=== PATIENT | female | born 1980 | race Caucasian/White ===

== ENCOUNTER 2019-10-24 09:50 | Outpatient (CLI) | payer OTHER, SELFPAY ==
--- NOTE | ~2019-10-24 | XR_ITS ---
EXAMINATION: XR knee LT min 4V DATE: 10/24/2019 10:15 INDICATION: Lateral left knee pain. TECHNIQUE: 4 views of left knee were obtained. COMPARISON: Left knee radiographs 05/05/2014 FINDINGS: Bone alignment is normal. No fracture. There is mild tricompartmental osteoarthritis. There is a moderate-sized knee joint effusion. IMPRESSION: 1. Mild left knee osteoarthritis. 2. Moderate-sized left knee joint effusion. Reviewed, dictated and finalized at location A. [employer]
== END 2019-10-24 09:51 | disposition home or self-care (01) ==
DX: M17.12 Unilateral primary osteoarthritis, left knee (principal); M25.462 Effusion, left knee
CPT/HCPCS: 73564

== ENCOUNTER 2019-10-25 15:33 | Emergency (ER) | payer OTHER, SELFPAY ==
[2019-10-25 15:39] VITALS: BP 102/70; PULSE 87; RESP 18; TEMP 36.6; O2SAT 97
--- NOTE | 2019-10-25 16:01 | ED.LOWEXIN ---
HPI - Extremity Injury (Lower) General Chief Complaint: Extremity Injury, Lower Stated Complaint: left knee pain Time Seen by Provider: 10/25/19 16:03 Source: patient History of Present Illness HPI Narrative: Patient presents with left knee pain. Patient states she had a left knee x-ray done at [facility] yesterday but is unable to contact her primary care provider to get results of x-ray. Patient is here requesting x-ray results and something for pain and a work note. Patient denies any injury to her knee but states she does stand on her feet at work. complaint: hip injury Injury: Left: knee Related Data Home Medications Medication Instructions Recorded Confirmed albuterol sulfate 2 puff INHALATION QID PRN 10/25/19 10/25/19 buprenorphine-naloxone 1 film SUBLINGUAL BID 10/25/19 10/25/19 bupropion HCl [Wellbutrin XL] 300 mg PO QAM 10/25/19 10/25/19 trazodone 100 mg PO HS 10/25/19 10/25/19 Allergies Allergy/AdvReac Type Severity Reaction Status Date / Time No Known Allergies Allergy Verified 10/25/19 16:01 Review of Systems Review of Systems: Narrative: CONSTITUTIONAL: Denies fever, chills, or sweats. EYES: Denies visual changes, redness, or discharge. ENT: Denies rhinorrhea, congestion, sore throat, or otalgia. CARDIOVASCULAR: Denies chest pain, palpitations, or edema. RESPIRATORY: Denies cough or dyspnea. GASTROINTESTINAL: Denies abdominal pain, nausea, vomiting, or diarrhea. GENITOURINARY: Denies dysuria or hematuria. SKIN: Denies rash or itching. MUSCULOSKELETAL: Denies back pain, joint pain, or myalgia. Left knee pain NEUROLOGIC: Denies headache, numbness, or weakness. PSYCHIATRIC: Denies anxiety or depression. All systems reviewed & are unremarkable except as noted in HPI and below PMFSH Comments At time of signature, agree with nursing past medical, surgical, social and family history. There is no relevant family history pertinent to the presenting complaint Exam Narrative: Exam Narrative: GENERAL: Well-appearing, well-nourished, and in no acute distress. HEAD: Normocephalic, atraumatic. EYES: PERRLA and EOMI. ENT: Nares clear, no rhinorrhea or epistaxis. Mucous membranes moist. NECK: Supple. CHEST: Clear to auscultation. No respiratory distress. HEART: Regular rate and rhythm. No murmur heard. Normal peripheral pulses. ABDOMEN: Soft, nontender, nondistended, normal active bowel sounds. EXTREMITIES: Normal range of motion. No edema. SKIN INTACT. NO DEFORMITY. NORMAL ROM, HAS FULL EXTENSION AND FLEXION. COMPARTMENTS SOFT. NEGATIVE ANTERIOR, POSTERIOR DRAWER SIGNS ON TEST. NO CREPITUS. DP PULSE, NORMAL CAPILLARY REFILL. RIGHT CALF MEASURES 48.5CM; LEFT CALF MEASURES 47.5CM. -MCMURRAYS, PAIN TO RIGHT MEDIAL AND DISTAL KNEE WITH KNEE FLEXION, INTERNAL AND EXTERNAL FOOT ROTATION. RIGHT CALF IS FIRM WITH PALAPTION. FOOT FLEXION CAUSES PAIN TO RIGHT CALF. TENDERNESS WITH PALPATION TO RIGHT ACHILLES TENDON. NO ERYTHEMA OR INCREASED WARMTH TO CALF. . SKIN: Warm, dry, no rash. NEURO: No focal deficits. Alert and oriented x3. [place] Coma Scale Eye Opening: Spontaneous 4 [place] Coma Scale Motor: Obeys Commands 6 [place] Coma Scale Verbal: Oriented 5 [place] Coma Scale Total 15 Course Vital Signs Vital signs: Vital Signs Temperature 36.6 C 10/25/19 15:39 Pulse Rate 87 10/25/19 15:39 Respiratory Rate 18 10/25/19 15:39 Blood Pressure 102/70 10/25/19 15:39 Pulse Oximetry 97 10/25/19 15:39 Temperature 36.6 C 10/25/19 15:39 Pulse Rate 87 10/25/19 15:39 Respiratory Rate 18 10/25/19 15:39 Blood Pressure 102/70 10/25/19 15:39 Pulse Oximetry 97 10/25/19 15:39 DISCUSSED WITH PATIENT, X-RAY FINDINGS AND THAT X-RAYS WERE NEGATIVE FOR FRACTURE OR DISLOCATIONS. X-RAYS CANNOT RULE OUT TENDON, LIGAMENT, OR SOFT TISSUE STRUCTURE INJURIES AND IF SYMPTOMS PERSIST OR WORSEN, FURTHER EVALUATION MAY BE WARRANTED FOR POTENTIAL IMAGING. ADVISED REST, ICE, COMPRESSION, AND ELEVATION. IF MA
== END 2019-10-25 16:05 | disposition home or self-care (01) ==
PROVIDERS: Emergency Provider Nurse Practitioner Family
DX: M17.12 Unilateral primary osteoarthritis, left knee (principal); J45.909 Unspecified asthma, uncomplicated; F41.9 Anxiety disorder, unspecified; F32.9 Major depressive disorder, single episode, unspecified
CPT/HCPCS: 99213; G0463

== ENCOUNTER → 2019-11-18 08:46 | Outpatient (CLI) | payer OTHER, SELFPAY ==
--- NOTE | ~2019-11-18 | US_ITS ---
EXAMINATION: US transvaginal DATE: 11/18/2019 09:12 INDICATION: Follow-up ovarian cysts Comparison:Ultrasound dated 09/28/2019 TECHNIQUE: Multiple transabdominal and endovaginal sonographic images of the pelvis performed. FINDINGS: The uterus measures 7.4 x 3.3 x 4.2 cm. The endometrial complex measures 3 mm. The right ovary measures 1.9 x 1.3 x 1.6 cm and the left ovary measures 2.1 x 1.3 x 1.9 cm. There ar e small follicles in each ovary. There is no free fluid in the pelvis. There are no abnormal masses seen on either side. IMPRESSION: 1. Normal pelvic ultrasound. Reviewed, dictated and finalized at location B. [employer]
== END ==
PROVIDERS: Visit Provider Obstetrics & Gynecology
DX: N83.201 Unspecified ovarian cyst, right side (principal)
CPT/HCPCS: 76830

== ENCOUNTER 2020-08-18 08:53 | Emergency (ER) | payer OTHER, SELFPAY ==
[2020-08-18 09:00] VITALS: BP 119/85; PULSE 89; RESP 14; TEMP 36.6; O2SAT 100
--- NOTE | 2020-08-18 09:20 | ED.NAVMDI ---
HPI - Nausea/Vomiting/Diarrhea General Chief complaint: Nausea/Vomiting/Diarrhea Stated complaint: nausea x 2 days Time Seen by Provider: 08/18/20 09:20 Source: patient History of Present Illness HPI Narrative: PATIENT PRESENTS WITH NAUSEA NO ABDOMINAL PAIN NO FEVER NO DIARRHEA NO CONSTIPATION. PATIENT STATES SHE HAS A HISTORY OF PANCREATITIS BUT DOES NOT FEEL IF THIS IS A FLAIR. PATIENT STATES HER DAUGHTER IS POSITIVE FOR COVID 19. Related Data Home Medications Medication Instructions Recorded Confirmed albuterol sulfate 2 puff INHALATION QID PRN 10/25/19 08/18/20 levonorgestrel [Mirena] 1 device INTRAUTERINE ONCE 10/25/19 08/18/20 Allergies Allergy/AdvReac Type Severity Reaction Status Date / Time No Known Allergies Allergy Verified 08/18/20 09:07 Review of Systems Review of Systems: Narrative: CONSTITUTIONAL: Denies chills, or sweats. Reports fever and generalized body aches EYES: Denies visual changes, redness, or discharge. ENT: Denies otalgia. Reports nasal congestion runny nose and sore throat CARDIOVASCULAR: Denies chest pain, palpitations, or edema. RESPIRATORY: Denies dyspnea. Reports occasional cough GASTROINTESTINAL: Denies abdominal pain, nausea, vomiting, or diarrhea. GENITOURINARY: Denies dysuria or hematuria. SKIN: Denies rash or itching. MUSCULOSKELETAL: Denies back pain, joint pain, or myalgia. Reports generalized body aches NEUROLOGIC: Denies headache, numbness, or weakness. PSYCHIATRIC: Denies anxiety or depression. PMFSH Comments At time of signature, agree with nursing past medical, surgical, social and family history. There is no relevant family history pertinent to the presenting complaint Exam Narrative: Exam Narrative: The patient is a well-developed, well-nourished in no acute distress. SKIN: Skin is warm and dry without erythema, swelling or exudate. There is good turgor. No tenting. HEAD: Atraumatic. Normocephalic. No temporal or scalp tenderness. EYES: Moist and bright. Sclera and conjunctivae normal. No discharge. PERRLA. Extraocular motions intact. Gross visual acuity intact. EARS: Pinna is normal shape and contour. Clear external auditory canals. TM pearly dickey with good cone of light, no erythema or suppuration. Bilateral cerumen noted no gross hearing deficit. NOSE: pink, moist mucosa with good air movement. Clear rhinorrhea without nasal flaring. Septum midline. Mouth: moist mucous membranes. THROAT; mild erythema noted to posterior oropharynx with moderate postnasal drainage. Without exudate or ulceration.. Uvula midline. Normal movement of soft palate. NECK: Supple and nontender with full range of motion without discomfort. No meningeal signs. LUNGS: Equal and bilateral breath sounds without wheezes, rales or rhonchi. CHEST: The chest wall is without retractions or use of accessory muscles. HEART: Has a regular rate and rhythm without murmur, gallops, click or rub. ABDOMEN: Soft, nontender with positive active bowel sounds. No rebound tenderness. EXTREMITIES: Without cyanosis, clubbing or edema. Equal 2+ distal pulses and 2 second capillary refill noted. NEUROLOGIC: alert, active, . The patient moves all extremities with normal muscle strength. Normal muscle tone is noted. Normal coordination is noted. NO focal neurological findings noted. Course Vital Signs Vital signs: Vital Signs Temperature 36.6 C 08/18/20 09:00 Pulse Rate 89 08/18/20 09:00 Respiratory Rate 14 08/18/20 09:00 Blood Pressure 119/85 08/18/20 09:00 Pulse Oximetry 100 08/18/20 09:00 Temperature 36.6 C 08/18/20 09:00 Pulse Rate 89 08/18/20 09:00 Respiratory Rate 14 08/18/20 09:00 Blood Pressure 119/85 08/18/20 09:00 Pulse Oximetry 100 08/18/20 09:00 MDM - Nausea/Vomiting/Diarrhea Differential Diagnosis Differential diagnosis: Likely traveler's diarrhea, food poisoning, gastroenteritis and other (COVID 19) Critical Care Time Critical Care Time Critical Care T
[2020-08-18] MEDS: ONDANSETRON HCL ODT 4 MG TABLET PO (09:22)
== END 2020-08-18 09:45 | disposition home or self-care (01) ==
PROVIDERS: Emergency Provider Nurse Practitioner Family; PCP Hospitalist
DX: R11.2 Nausea with vomiting, unspecified (principal); R52 Pain, unspecified; R53.83 Other fatigue; Z20.828 Contact with and (suspected) exposure to other viral communicable diseases; J45.909 Unspecified asthma, uncomplicated
CPT/HCPCS: 99213; A9270; G0463

== ENCOUNTER 2021-11-02 15:39 | Emergency (ER) | payer SELFPAY ==
[2021-11-02 15:47] VITALS: BP 112/81; PULSE 117; RESP 18; TEMP 36.7; O2SAT 96
--- NOTE | 2021-11-02 15:55 | ED.URI ---
HPI - URI/Sore Throat General Chief Complaint: Upper Respiratory Infection Stated Complaint: headache body aches fever Time Seen by Provider: 11/02/21 15:45 Source: patient and RN notes reviewed History of Present Illness HPI Narrative: Patient is a 41-year-old female who presents the urgent care with complaints of headache, body aches, fever, fatigue. Patient states that she was tested positive for Covid on September 27, October 05, and just had a negative test on Monday. Patient states that she returned to work on Monday and woke up Monday afternoon with a temperature 102.4. Patient states she is been alternating Tylenol and ibuprofen and was told from her workplace to go to urgent care for evaluation . Patient denies of any shortness of breath or chest pain. States that her fevers do improve on the medication. States that she has had the post COVID headaches. Denies any nausea, vomiting. No other acute complaints. No acute distress noted. Patient read the plan of care. Some parts of this dictation were generated by voice recognition software and may contain typographical and/or grammatical inaccuracies. Related Data Home Medications Medication Instructions Recorded Confirmed fluoxetine 40 mg PO DAILY 11/02/21 11/02/21 mirtazapine 15 mg PO HS 11/02/21 11/02/21 trazodone 100 11/02/21 Allergies Allergy/AdvReac Type Severity Reaction Status Date / Time No Known Allergies Allergy Verified 08/18/20 09:07 Review of Systems Review of Systems: CONSTITUTIONAL: Reports of fever, chills, sweats, fatigue EYES: Denies visual changes, redness, or discharge. ENT: Denies rhinorrhea, congestion, sore throat, or otalgia. CARDIOVASCULAR: Denies chest pain, palpitations, or edema. RESPIRATORY: Denies cough or dyspnea. GASTROINTESTINAL: Denies abdominal pain, nausea, vomiting, or diarrhea. GENITOURINARY: Denies dysuria or hematuria. SKIN: Denies rash or itching. MUSCULOSKELETAL: Denies back pain, joint pain. Reports body aches NEUROLOGIC: Reports of headache All other systems reviewed are negative, except as documented in HPI. PMFSH Comments At the time of my signature, I reviewed and agree with the nursing past medical, surgical, social, and family history. There is no relevant family history pertinent to the patient complaint. Exam Narrative: GENERAL: This is a well-nourished, well-developed patient, in no apparent distress. HEAD: normocephalic, atraumatic. EYES: PERRL. Sclera clear/white. Vision is grossly intact. EARS: External ears normal, auditory canals clear and without drainage, TMs normal without perforation. Hearing grossly intact. NOSE: External nose normal with no obvious nasal discharge, nares without redness, clear rhinorrhea. THROAT: Mucous membranes moist, posterior pharynx clear. Mild postnasal drainage NECK: Neck supple, non-tender without lymphadenopathy CARDIOVASCULAR: Regular rate and rhythm without murmurs, gallops, or rubs. RESPIRATORY: Slight wheeze to right upper lobe, cleared with cough GASTROINTESTINAL: Abdomen soft, non-tender, nondistended. Bowel sounds are active. No hepato-splenomegaly, or palpable masses. No guarding. SKIN: warm, intact with no suspicious lesions or rash, good texture and turgor. NEURO: awake, alert, and oriented to person, place and time. There were no obvious focal neurologic abnormalities. EXTREMITIES: No clubbing, cyanosis, or edema. Course Course Level of Care: Express Care Visit Vital Signs Vital signs: Vital Signs Temperature 98.1 F 11/02/21 15:47 Pulse Rate 117 H 11/02/21 15:47 Respiratory Rate 18 11/02/21 15:47 Blood Pressure 112/81 11/02/21 15:47 Pulse Oximetry 96 11/02/21 15:47 Temperature 98.1 F 11/02/21 15:47 Pulse Rate 117 H 11/02/21 15:47 Respiratory Rate 18 11/02/21 15:47 Blood Pressure 112/81 11/02/21 15:47 Pulse Oximetry 96 11/02/21 15:47 Reviewed MDM - URI/Sore Throat MDM Narrative Medical decision making narrati
== END 2021-11-02 16:37 | disposition home or self-care (01) ==
PROVIDERS: Emergency Provider Nurse Practitioner Family; PCP Hospitalist
DX: B34.9 Viral infection, unspecified (principal); Z86.16 Personal history of COVID-19; J45.909 Unspecified asthma, uncomplicated; F41.9 Anxiety disorder, unspecified; F32.A Depression, unspecified
CPT/HCPCS: 87804; 99213; G0463

== ENCOUNTER 2022-05-04 08:08 | Emergency (ER) | payer BC, SELFPAY ==
--- NOTE | ~2022-05-04 | XR_ITS ---
EXAMINATION: XR chest 2V DATE: 05/04/2022 08:32 INDICATION: Chest pain, mid chest heaviness and hypotension. TECHNIQUE: PA and lateral views of the chest were obtained. COMPARISON: Chest radiograph dated 09/25/2006 FINDINGS: The lungs remain clear with no focal airspace opacities, pulmonary edema, pleural effusion or pneumot horax. The cardiomediastinal silhouette is normal. Mild thoracic spondylosis. IMPRESSION: 1. No acute cardiopulmonary disease. Reviewed, dictated and finalized at location A.
--- NOTE | 2022-05-04 08:09 | ECG_ITS ---
Measurements Intervals [place] Rate: 88 P: 64 MT: 134 QRS: 7 QRSD: 85 T: 51 QT: 340 QTc: 412 Interpretive Statements SINUS RHYTHM NORMAL ECG NO PREVIOUS ECG AVAILABLE FOR COMPARISON Electronically Signed On 05-04-2022 10:48:00 CDT by Inocencio Kumar M.D.
[2022-05-04 08:12] VITALS: BP 144/86; PULSE 92; RESP 12; TEMP 36.5; O2SAT 97
--- NOTE | 2022-05-04 08:19 | ED.CHESTPAIN ---
HPI - Chest Pain General Chief Complaint: Chest Pain Stated Complaint: chest pain into back and rt neck Time Seen by Provider: 05/04/22 08:11 History of Present Illness HPI narrative: 42-year-old female presenting with chest pain since yesterday, states that it seems to be kind of between her shoulder blades also, initially thought it may be muscle pain as she had slept in a strange position but worried it may be worse. No history of any heart issues in the past, did have a history of pancreatitis. Endorses some nausea, shortness of breath, felt the pain seemed to radiate down her right arm but not anymore. No recent fevers or chills, cough. Related Data Home Medications Medication Instructions Recorded Confirmed fluoxetine 40 mg capsule 40 mg PO DAILY 11/02/21 11/02/21 mirtazapine 15 mg tablet 15 mg PO HS 11/02/21 11/02/21 trazodone 100 mg tablet 100 mg PO PRN PRN Sleep 11/02/21 11/02/21 Allergies Allergy/AdvReac Type Severity Reaction Status Date / Time No Known Allergies Allergy Verified 05/04/22 08:19 Review of Systems Review of Systems: CONST: No fever. HEENT: No sore throat C/V: Chest pain RESP: Shortness of breath GI: Reports abdominal pain, nausea : No dysuria. M/S: No joint pain. SKIN: No rash. NEURO: [No focal numbness or weakness] PSYCH: [No depression] [facility] Past Medical History Medical History (Updated 05/04/22 @ 09:57 by Rochelle Heck MD) Pancreatitis Surgical History Surgical History (Updated 05/04/22 @ 08:21 by Rochelle Heck MD) History of cholecystectomy Exam Narrative: EXAMINATION OF ORGAN SYSTEMS/BODY AREAS: Constitutional: Vital signs per nursing GENERAL:[No acute distress, non-toxic appearing.] HEAD: Normal with no signs of head trauma. EYES: EOMI, conjunctiva normal ENT: Hearing grossly intact LUNGS: Nonlabored breathing. HEART: [Regular rate and rhythm] ABD: [Soft], minimally [tender to palpation] epigastric EXT: Normal range of motion SKIN: [No rashes or lesions.] NEURO: [Alert and oriented x 3. No gross focal sensory or strength deficits.] PSYCH: Normal affect Course Vital Signs Vital signs: Vital Signs Temperature 97.7 F 05/04/22 08:12 Pulse Rate 92 05/04/22 08:12 Respiratory Rate 12 05/04/22 08:12 Blood Pressure 144/86 H 05/04/22 08:12 Pulse Oximetry 97 05/04/22 08:12 Oxygen Delivery Room Air 05/04/22 08:12 Temperature 98.2 F 05/04/22 10:10 Pulse Rate 87 05/04/22 10:10 Respiratory Rate 20 05/04/22 10:10 Blood Pressure 133/86 05/04/22 10:10 Pulse Oximetry 97 05/04/22 10:10 Oxygen Delivery Room Air 05/04/22 08:12 MDM - Chest Pain MDM Narrative Medical decision making narrative: ED COURSE AND MEDICAL DECISION MAKINyo female presenting with chest pain. EKG done in triage negative for acute ischemic changes. Cardiac workup is initiated. HEART score is 0 with no acute ischemic changes on EKG and negative troponin making ACS unlikely. Wells low risk with negative PERC making PE unlikely. Presentation not consistent with dissection or aneurysm without radiation of pain or pulse deficits. CXR negative for mediastinal widening. No abdominal pain or signs of sepsis that would be concerning for esophageal perforation or mediastinitis. No cardiomegaly or JVD to suggest pericardial effusion/tamponade. HEART Score: [0] On repeat evaluation just prior to discharge, the patient is no acute distress; no new chest pain, symptoms improved. I had a long discussion with the patient and with shared decision making, she is comfortable with outpatient management. She was given clear return instructions by myself in person as well as on discharge paperwork. Procedures: Pulse oximetry interpretation - not hypoxic. EKG interpretation. Review of medical records. Lab Data Result diagrams: 05/04/22 08:19 05/04/22 08:47 Labs: Lab Results 05/04/22 05/04/22 05/04/22 Range/Units 08:19 08:19
[2022-05-04 08:25] LABS: Basophils Absolute Auto 0.1 K/mm3 (0.0-0.1); Basophils Percent Auto 0.7 % (0.2-1.2); Eosinophils Absolute Auto 0.3 K/mm3 (0-0.3); Eosinophils Percent Auto 2.8 % (0-4.4); Hematocrit 42.7 % (37.0-47.0); Hemoglobin 14.8 g/dL (12.0-15.0); Immature Granulocyte Absolute 0.05 K/mm3 (0.00-0.031); Immature Granulocyte Percent A 0.4 % (0-0.5); Lymphocytes Absolute Auto 2.49 K/mm3 (0.9-3.2); Lymphocytes Percent Auto 21.7 % (18.3-44.2); Mean Corpuscular HGB Conc 34.7 g/dl (32-36); Mean Corpuscular Hemoglobin 30.5 pg (26-34); Mean Platelet Volume 9.2 fl (7.4-10.4); Monocytes Absolute Auto 0.6 K/mm3 (0.1-0.6); Monocytes Percent Auto 5.1 % (2.6-8.5); Neutrophils Absolute Auto 7.9 K/mm3 (1.3-6.7); Neutrophils Percent Auto 69.3 % (45.5-73.1); Platelet Count Result 303 k/mm3 (150-375); Red Blood Count 4.85 M/mm3 (4.2-5.4); Red Cell Distribution Width 15.2 % (11.5-14.5); White Blood Count 11.5 K/mm3 (4.5-10.0)
[2022-05-04 08:36] LABS: Partial Thromboplastin Time 25.1 SECONDS (22.3-36.8); Prothrombin Time 12.7 Seconds (11.1-14.7)
[2022-05-04 08:45] VITALS: BP 129/77; PULSE 85; RESP 12; O2SAT 98
[2022-05-04 09:05] LABS: Alanine Aminotransferase 16 U/L (6-35); Albumin Level 4.3 g/dL (3.5-5.1); Alkaline Phosphatase 100 U/L (38-126); Anion Gap 9 mmol/L (8-16); Aspartate Amino Transferase 22 U/L (14-36); Bilirubin,Total 0.4 mg/dL (0.2-1.3); Blood Urea Nitrogen 10 mg/dL (7-17); Calcium 8.6 mg/dL (8.4-10.2); Carbon Dioxide 26 mmol/L (22-30); Chloride 103 mmol/L (98-107); Estimated CRCL calculation 89 ml/min; Estimated Glomerular Filt Rate > 60; Glucose 120 mg/dL (65-110); Lipase 67 U/L (23-300); Potassium 4.5 mmol/L (3.4-5.0); Sodium 138 mmol/L (137-145)
[2022-05-04 09:33] LABS: Troponin I < 0.012 ng/mL (0.000-0.034)
[2022-05-04 10:10] VITALS: BP 133/86; PULSE 87; RESP 20; TEMP 36.8; O2SAT 97
== END 2022-05-04 10:12 | disposition home or self-care (01) ==
PROVIDERS: Emergency Provider Emergency Medicine; PCP Hospitalist
DX: R07.9 Chest pain, unspecified (principal)
CPT/HCPCS: 36415; 71046; 80053; 83690; 84484; 85025; 85610; 85730; 93005; 99284

== ENCOUNTER 2023-12-09 23:56 | Emergency (ER) | payer OTHER, SELFPAY ==
[2023-12-09 23:59] VITALS: BP 137/85; PULSE 100; RESP 20; TEMP 36.9; O2SAT 97
--- NOTE | 2023-12-10 00:44 | ED.URI ---
HPI - URI/Sore Throat General Chief Complaint: Upper Respiratory Infection Stated Complaint: Fever, cough, body aches, ALTMAN Time Seen by Provider: 12/10/23 00:33 Source: patient Mode of arrival: ambulatory Limitations: no limitations History of Present Illness HPI Narrative: Patient presents to the emergency department for cold symptoms present since last night. Reports that she was driving into work tonight she started to feel unwell. Reports fevers, chills, headache, sweats and cough. 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 Denies dyspnea. Related Data Home Medications Medication Instructions Recorded Confirmed fluoxetine 40 mg capsule 40 mg PO DAILY 11/02/21 11/02/21 mirtazapine 15 mg tablet 15 mg PO HS 11/02/21 11/02/21 trazodone 100 mg tablet 100 mg PO PRN PRN Sleep 11/02/21 11/02/21 Allergies Allergy/AdvReac Type Severity Reaction Status Date / Time No Known Allergies Allergy Verified 12/09/23 23:59 Review of Systems Review of Systems: CONSTITUTIONAL: Reports fever, chills, and sweats. ENT: Reports rhinorrhea, congestion RESPIRATORY: Reports cough. Denies dyspnea. All systems reviewed & are unremarkable except as noted in HPI and below PMFSH Past Medical History Medical History (Updated 12/10/23 @ 00:54 by Sydni Galeana PA-C) History of asthma Pancreatitis Surgical History Surgical History (Updated 05/04/22 @ 08:21 by Rochelle Heck MD) History of cholecystectomy Social History Social History (Updated 12/10/23 @ 00:48 by Sydni Galeana PA-C) Smoking status: Never smoker Exam Narrative: GENERAL: Well-appearing, well-nourished, and in no acute distress. HEAD: Normocephalic, atraumatic. EYES: EOMI. ENT: Nares clear, no rhinorrhea or epistaxis. Mucous membranes moist. Oropharynx without tonsillar hypertrophy exudate or other lesions. Bilateral TMs pearly padilla non-bulging NECK: Supple. No adenopathy or masses. CHEST: Clear to auscultation. No respiratory distress. No wheezes rales or rhonchi HEART: Regular rate and rhythm. No murmur heard. Normal peripheral pulses. EXTREMITIES: Normal range of motion. No edema. SKIN: Warm, dry, no rash. NEURO: No focal deficits. Alert and oriented x3. PSYCH: Normal mood and affect Course Course Emergency Course: Patient updated on her workup and agrees with plan of care Vital Signs Vital signs: Vital Signs Temperature 98.5 F 12/09/23 23:59 Pulse Rate 100 12/09/23 23:59 Respiratory Rate 20 12/09/23 23:59 Blood Pressure 137/85 12/09/23 23:59 Pulse Oximetry 97 12/09/23 23:59 Oxygen Delivery Room Air 12/09/23 23:59 Temperature 98.5 F 12/09/23 23:59 Pulse Rate 100 12/09/23 23:59 Respiratory Rate 20 12/09/23 23:59 Blood Pressure 137/85 12/09/23 23:59 Pulse Oximetry 97 12/09/23 23:59 Oxygen Delivery Room Air 12/09/23 23:59 MDM - URI/Sore Throat MDM Narrative Medical decision making narrative: Patient presents to the ER for cold symptoms present since last night. She is afebrile and nontoxic appearing. Lungs are clear on exam. Oxygen saturation is normal on room air. Influenza, RSV, and COVID screens are negative. She was instructed on continued care a viral infection. She is to follow up with primary provider. She was given warnings to return to the ER Differential Diagnosis Differential diagnosis: Likely upper respiratory infection, viral infection, influenza and other (COVID, RSV) Lab Data Attestation: I reviewed the patient's lab results. Labs: Lab Results 12/10/23 Range/Units 00:05 Influenza A (RT-PCR) Negative (Negative) Influenza B (RT-PCR) Negative (Negative) RSV (RT-PCR) Negative (Negative) SARS-CoV-2 RNA (RT-PCR) Negative (Negative) Critical Care Time Critical Care Time Critical Care Time: No Discharge Plan Discharge Clinical Impression: Acute viral syndrome Meli
[2023-12-10 00:47] LABS: Influenza A QL RT-PCR Negative (Negative); Influenza B QL RT-PCR Negative (Negative); RSV RNA, RT-PCR Negative (Negative); SARS-CoV-2 RNA PCR Negative (Negative)
[2023-12-10] MEDS: IBUPROFEN 600 MG TABLET PO (01:30)
[2023-12-10 01:33] VITALS: BP 134/78; PULSE 81; RESP 15; O2SAT 100
== END 2023-12-10 01:33 | disposition home or self-care (01) ==
LOC: ANHED 12-10 01:15
PROVIDERS: Emergency Provider Physician Assistant; PCP Hospitalist
DX: B34.9 Viral infection, unspecified (principal); Z20.822 Contact with and (suspected) exposure to COVID-19; J45.909 Unspecified asthma, uncomplicated; Z90.49 Acquired absence of other specified parts of digestive tract
CPT/HCPCS: 87637; 99283; A9270

== ENCOUNTER 2024-06-07 18:39 | Emergency (ER) | payer BC, SELFPAY ==
--- NOTE | ~2024-06-07 | XR_ITS ---
XR abdomen/kub 1V Ordering provider: Susan Vega NP History: . constipation, epigastric pain, mucousy stool . Comparison: None. FINDINGS: BOWEL: Nonobstructive bowel gas pattern. ORGANOMEGALY: None. SIGNIFICANT PATHOLOGIC CALCIFICATIONS: None. OTHER: IUD is seen in the uterus. No free air is seen under the diaphragm. IMPRESSION: NO ACUTE ABDOMINAL FINDINGS. Reviewed, dictated and finalized at location A.
[2024-06-07 18:40] VITALS: BP 96/64; PULSE 87; RESP 16; TEMP 36.9; O2SAT 97
--- NOTE | 2024-06-07 18:52 | ECG_ITS ---
Test Date: 2024-06-07 18:57:50 Measurements Intervals [place] Rate: 80 P: 58 NC: 171 QRS: 31 QRSD: 93 T: 59 QT: 346 QTc: 400 Interpretive Statements SINUS RHYTHM BASELINE ARTIFACT- II, III, AVL, AVF, V1-V2 NORMAL ECG No previous ECG available for comparison Electronically Signed On 06-08-2024 08:13:40 CDT by Wander Ridley D.O.
--- NOTE | 2024-06-07 18:52 | ED.GENADULT ---
HPI - General Adult General Chief complaint: Chest Pain Stated complaint: Chest Pain/Back Pain Time Seen by Provider: 06/07/24 18:52 Source: patient Mode of arrival: ambulatory Limitations: no limitations History of Present Illness HPI narrative: 44-year-old female presents concern for epigastric pain and pain between her right shoulder blades. She reports she has been dealing with constipation, she had gone a week and a half without a bowel movement and ended up having to take Mag citrate to produce a bowel movement. She reports she went another 4-5 days without a bowel movement, she tried a series of measures including laxatives to produce a bowel movement which did work she then used a Fleet's enema and had a small amount of solid stool but mostly watery and mucousy stools since then. She denies fever. She has taken omeprazole without relief MD complaint: Epigastric pain Related Data Home Medications Medication Instructions Recorded Confirmed buprenorphine 8 mg-naloxone 2 mg 1 film sublingual TID 06/07/24 06/07/24 sublingual film bupropion HCl 150 mg 24 hr tablet, 150 mg PO DAILY 06/07/24 06/07/24 extended release Allergies Allergy/AdvReac Type Severity Reaction Status Date / Time No Known Allergies Allergy Verified 06/07/24 18:53 Review of Systems Review of Systems: CONSTITUTIONAL: Denies malaise, chills, sweats, or fever. CARDIOVASCULAR: Denies chest pain, palpitations, or edema. RESPIRATORY: Denies cough or dyspnea. GASTROINTESTINAL: Reports epigastric abdominal pain, nausea, mucous stools. GENITOURINARY: Denies dysuria or hematuria. SKIN: Denies rash or itching. MUSCULOSKELETAL: Reports pain between her shoulder blades NEUROLOGIC: Reports headache. All systems reviewed & are unremarkable except as noted in HPI and below [facility] Past Medical History Medical History (Updated 06/07/24 @ 19:23 by Susan Vega NP) History of asthma Pancreatitis Surgical History Surgical History (Updated 05/04/22 @ 08:21 by Rochelle Heck MD) History of cholecystectomy Social History Social History (Updated 12/10/23 @ 00:48 by Sydni Galeana PA-C) Smoking status: Never smoker Comments At time of signature, agree with nursing past medical, surgical, social and family history. There is no relevant family history pertinent to the presenting complaint Exam Narrative: GENERAL: Well-appearing, well-nourished, and in no acute distress. HEAD: Normocephalic, atraumatic. EYES: PERRLA, sclera clear, and EOMI. No nystagmus. ENT: Nares clear. Mucous membranes moist. NECK: Supple. No lymphadenopathy. No jugular venous distension, thyromegaly, or carotid bruits. Carotids were easily palpable bilaterally. CHEST: No respiratory distress. Clear to auscultation. No bony deformities, no asymmetry. Speaks in full sentences. HEART: Regular rate and rhythm. No murmur heard. Normal peripheral pulses. ABDOMEN: Mild epigastric tenderness, Soft, nondistended, normal active bowel sounds, no palpable masses. EXTREMITIES: Normal range of motion. No edema. Normal strength and sensation. SKIN: Warm, dry, no visible rash. NEURO: Alert and oriented x3. PSYCH: Normal mood and affect Course Course Emergency Course: Patient is aware of diagnosis, understands and agrees to treatment plan. Anticipatory guidance given. Patient agrees to follow-up as directed and is aware of reasons to seek care at the emergency department. Portions of this record may have been created with voice recognition software Level of Care: Express Care Visit Vital Signs Vital signs: Reviewed. Medical Decision Making MDM Narrative Medical decision making narrative: The patient was evaluated by myself in the emergency department. History is obtained from patient who is an independent historian and physical exam was performed.? Available medical records were reviewed at this time. ? Exam findings and imaging show no acute concerns or change
== END 2024-06-07 19:28 | disposition home or self-care (01) ==
PROVIDERS: Emergency Provider Nurse Practitioner; PCP Hospitalist
DX: K59.00 Constipation, unspecified (principal); J45.909 Unspecified asthma, uncomplicated
CPT/HCPCS: 74018; 93005; 99213; G0463